=== PATIENT | male | born 1985 | race Caucasian/White ===

== ENCOUNTER 2023-08-25 22:10 | Observation (INO) | payer OTHER, SELFPAY ==
--- NOTE | ~2023-08-25 | CT_ITS ---
CT abdomen pelvis w con Ordering provider: Javon Kaur MD History: 37 years Male with . ABDOMINAL PAIN, LIFTING HEAVY OBJECT . Comparison: None. Technique: CT abdomen and pelvis with IV and without oral contrast. Automated exposure control and it erative reconstruction technique were employed. The dose-length product was 326.83 mGy-cm. 100 ML Omn ipaque 350 was given IV. Findings: VISUALIZED LOWER CHEST: Normal. UPPER ABDOMINAL ORGANS: Liver: Mild fat infiltration. 1 cm cyst in the right lobe segment 8 of the liver. Gallbladder: Normal. Spleen: Normal. Stomach/duodenum: Normal. Pancreas: Normal. Slightly prominent pancreatic duct. Adrenals: Normal. Kidneys: 8 mm cyst in the left kidney midpole. PELVIC ORGANS: The bladder shows thickened wall. Evaluation for cystitis advised. BOWEL AND MESENTERY: Colon: Mild sigmoid diverticulosis without diverticulitis. Slightly thickened wall of the appendix wi th fat stranding and measures 7 mm. Small Bowel: Normal. No obstruction. Peritoneum/mesentery: No free air or free fluid. No mesenteric lymphadenopathy. RETROPERITONEUM: Normal aorta. No retroperitoneal lymphadenopathy. Left are aortic lymph nodes is s een with the largest measures 7.5 mm. MUSCULOSKELETAL: Superficial soft tissues: The superficial soft tissues are normal. Bones: Normal spine. IMPRESSION: 1. Slightly thickened wall of the appendix with fat stranding and measures 7 mm which may indicate a cute appendicitis. Clinical correlation and evaluation advised. 2. Small cyst in the liver. Fat infiltration of the liver. 3. Slightly thickened urinary bladder wall which may indicate cystitis. Reviewed, dictated and finalized at location A. IMPRESSION: 1. Slightly thickened wall of the appendix with fat stranding and measures 7 m m which may indicate acute appendicitis. Clinical correlation and evaluation ad vised. 2. Small cyst in the liver. Fat infiltration of the liver. 3. Slightly thickened urinary bladder wall which may indicate cystitis.
[2023-08-25 22:12] VITALS: BP 107/69; PULSE 88; RESP 16; TEMP 36.3; O2SAT 97
[2023-08-25 22:34] LABS: Basophils Absolute Auto 0.1 K/mm3 (0.0-0.1); Basophils Percent Auto 0.4 % (0.2-1.2); Eosinophils Percent Auto 0.1 % (0-4.4); Hematocrit 48.8 % (42.0-52.0); Hemoglobin 17.3 g/dL (14.0-18.0); Immature Granulocyte Absolute 0.04 K/mm3 (0.00-0.031); Immature Granulocyte Percent A 0.2 % (0-0.5); Lymphocytes Absolute Auto 1.88 K/mm3 (0.9-3.2); Mean Corpuscular HGB Conc 35.5 g/dl (32-36); Mean Corpuscular Hemoglobin 30.7 pg (26-34); Mean Corpuscular Volume 86.5 fl (80-100); Mean Platelet Volume 9.8 fl (7.4-10.4); Monocytes Absolute Auto 0.6 K/mm3 (0.1-0.6); Monocytes Percent Auto 3.4 % (2.6-8.5); Neutrophils Absolute Auto 14.5 K/mm3 (1.3-6.7); Neutrophils Percent Auto 84.9 % (45.5-73.1); Platelet Count Result 225 k/mm3 (150-375); Red Blood Count 5.64 M/mm3 (4.6-6.20); Red Cell Distribution Width 12.3 % (11.5-14.5); White Blood Count 17.1 K/mm3 (4.5-10.0)
[2023-08-25 22:40] LABS: Appearance Urine Turbid (Clear); Bacteria Urine None Seen /hpf; Bilirubin Urine Negative (Negative); Blood Urine Negative (Negative); Color Urine Yellow (Yellow); Glucose Urine UA Negative (Negative); Ketones Urine Negative (Negative); Leukocyte Esterase Ur Negative LEU/UL (Negative); Nitrate Urine Negative (Negative); Non Pathogenic Casts 0-2; Protein Urine 1+ mg/dL (Negative); Specific Grav Ur 1.022 (1.001-1.035); Squamous Epithelial Cell Urine None Seen /hpf (Few); WBC Urine 0-5 /hpf (0-3); pH Urine >=9.0 (5.0-9.0)
[2023-08-25 22:42] LABS: Add Urine Microscopic? YES
--- NOTE | 2023-08-25 22:46 | ED.ABDPAIN ---
HPI - Abdominal Pain General Chief Complaint: Abdominal Pain Stated Complaint: abd pain Time Seen by Provider: 08/25/23 22:46 Source: patient Mode of arrival: ambulatory Limitations: no limitations History of Present Illness HPI narrative: 37 YEARS OLD WHITE MALE PRESENTS WITH SUDDEN ONSET OF SEVERE EPIGASTRIC PAIN STARTED AT 4:00 P.M. TODAY AFTER LEAVING WORK IMMEDIATELY ASSOCIATED WITH MULTIPLE VOMITING. HE DENIES ANY FEVER, CHILLS, DIARRHEA, CONSTIPATION OR URINARY SYMPTOMS OR HAVING SIMILAR SYMPTOMS OR ABDOMINAL SURGERY. PATIENT IS TELLING ME THAT HE LIFTED A HEAVY BOX AT WORK TODAY WHICH HE USUALLY DOES NOT DO THAT. PAIN INCREASES WITH MOVEMENT, SLIGHTLY BETTER AT REST. HE DOES NOT SMOKE OR DRINK OR USE DRUGS. Related Data Home Medications Medication Instructions Recorded Confirmed No Home Medications 08/25/23 Allergies Allergy/AdvReac Type Severity Reaction Status Date / Time No Known Allergies Allergy Verified 08/25/23 22:15 Review of Systems Review of Systems: All systems reviewed & are unremarkable except as noted in HPI and below Exam Narrative: GENERAL APPEARANCE: WELL-DEVELOPED, WELL-NOURISHED SKIN: NORMAL COLOR HEAD: NORMOCEPHALIC, NONTRAUMATIC EYES: CLEAR CONJUNCTIVA ENT: OROPHARYNX NORMAL, EARS NORMAL, NOSE NORMAL NECK: SUPPLE, NONTENDER CHEST AND RESPIRATORY: AIRWAY PATENT, NO RESPIRATORY DISTRESS, NO ACCESSORY MUSCLE USE HEART: REGULAR RATE/RHYTHM ABDOMEN: SOFT, MILD TO MODERATE TENDERNESS EPIGASTRIC AREA,, NO ORGANOMEGALY, QUIET BOWEL SOUNDS VASCULAR: NORMAL PERIPHERAL PULSES, NORMAL CAPILLARY REFILL. 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, NO GROSS MOTOR DEFICIT Course Consultations Consultation #1: DR ASTUDILLO Date: 08/26/23 Time: 00:11 Vital Signs Vital signs: Vital Signs Temperature 36.3 C L 08/25/23 22:12 Pulse Rate 88 08/25/23 22:12 Respiratory Rate 16 08/25/23 22:12 Blood Pressure 107/69 08/25/23 22:12 Pulse Oximetry 97 08/25/23 22:12 Oxygen Delivery Room Air 08/25/23 22:12 Temperature 36.3 C L 08/25/23 22:12 Pulse Rate 72 08/25/23 23:17 Respiratory Rate 15 08/25/23 23:17 Blood Pressure 105/79 08/25/23 23:17 Pulse Oximetry 98 07/18/24 23:17 Oxygen Delivery Room Air 08/25/23 22:12 MDM - Abdominal Pain MDM Narrative Medical decision making narrative: VITAL SIGNS ON ARRIVAL WITHIN NORMAL LIMIT DIFFERENTIAL DIAGNOSIS INCLUDE MUSCULAR STRAIN OF THE ABDOMINAL WALL, PANCREATITIS, ESOPHAGITIS, GASTRITIS, CHOLECYSTITIS BLOOD WORKUP TODAY SHOWED WBC OF 17.1 WITH LEFT SHIFT, URINALYSIS SHOWS NO EVIDENCE OF INFECTION CT ABDOMEN AND PELVIS WITH IV CONTRAST SHOWED POSSIBLE ACUTE APPENDICITIS, ZOSYN IV STARTED, ADMIT TO DR. ASTUDILLO. Differential Diagnosis Differential diagnosis: Likely other ( ABOVE) Medical Records Attestation: I reviewed the patient's medical records. Lab Data Attestation: I reviewed the patient's lab results. 08/25/23 22:23 08/25/23 22:23 Labs: Lab Results 08/25/23 Range/Units 22:23 WBC 17.1 H (4.5-10.0) K/mm3 RBC 5.64 (4.6-6.20) M/mm3 Hgb 17.3 (14.0-18.0) g/dL Hct 48.8 (42.0-52.0) % MCV 86.5 (80-100) fl MCH 30.7 (26-34) pg MCHC 35.5 (32-36) g/dl RDW 12.3 (11.5-14.5) % Plt Count 225 (150-375) k/mm3 MPV 9.8 (7.4-10.4) fl Immature Gran % (Auto) 0.2 (0-0.5) % Neut % (Auto) 84.9 H (45.5-73.1) % Lymph % (Auto) 11.0 L (18.3-44.2) % [place] % (Auto) 3.4 (2.6-8.5) % Eos % (Auto) 0.1 (0-4.4) % Baso % (Auto) 0.4 (0.2-1.2) % Lymph # (Auto) 1.88 (0.9-3.2) K/mm3 [place] # (Auto) 0.6
[2023-08-25 22:51] LABS: Alanine Aminotransferase 32 U/L (6-50); Albumin Level 4.9 g/dL (3.5-5.1); Alkaline Phosphatase 57 U/L (38-126); Anion Gap 12 mmol/L (4-12); Aspartate Amino Transferase 31 U/L (17-59); Bilirubin,Total 0.9 mg/dL (0.2-1.3); Blood Urea Nitrogen 11 mg/dL (9-20); Carbon Dioxide 28 mmol/L (22-30); Chloride 98 mmol/L (98-107); Estimated CRCL calculation 104 ml/min; Estimated Glomerular Filt Rate > 60; Glucose 114 mg/dL (65-110); Lipase 47 U/L (23-300); Potassium 3.9 mmol/L (3.4-5.0); Sodium 138 mmol/L (137-145)
[2023-08-25] MEDS: HYDROmorphone HCL INJ (*CRX) 1 MG/ML SYR 0.5 MG IV PUSH (23:10)
[2023-08-25] MEDS: ONDANSETRON INJ 4 MG/2 ML VIAL IV PUSH (23:10)
[2023-08-25] MEDS: SODIUM CHLORIDE 0.9% IV 1,000 ML 999 ML IV CONT (23:11)
[2023-08-25 23:17] VITALS: BP 105/79; PULSE 72; RESP 15; O2SAT 98
[2023-08-26 00:19] VITALS: BP 119/82; PULSE 68; RESP 15; O2SAT 100
[2023-08-26] MEDS: PIPERACILLN/TAZ 3.375GM/NS50ML 3.375 GM/50 ML BAG IVPB ×5 (00:23→23:03)
[2023-08-26] MEDS: LACTATED RINGERS 1,000 ML 150 ML IV CONT ×2 (00:53→06:01)
[2023-08-26] MEDS: HYDROmorphone HCL INJ (*CRX) 1 MG/ML SYR 0.5 MG IV PUSH (03:00)
[2023-08-26 04:01] VITALS: BP 126/92; PULSE 76; RESP 20; TEMP 36.4; O2SAT 99
--- NOTE | 2023-08-26 04:24 | ADMGEN ---
This patient, Johnny Leach, was admitted to [facility] Surg Room 316-02. Patient/family oriented to hospital policies and general routines including ID bracelet, bed and alarms, visiting hours, pain management, procedures, bathroom and other care routines, personal items, smoking policy, room service/diet, and visiting hours. Information on how to activate the Rapid Response Team has been discussed. Patient/Family are encouraged to report perceived risks to care and to ask questions if they do not understand what they are told or what they should do.
[2023-08-26 06:00] VITALS: BP 117/67; PULSE 77; RESP 20; TEMP 36.4; O2SAT 100
[2023-08-26 06:43] VITALS: BMI 22.1
[2023-08-26] MEDS: LACTATED RINGERS 1,000 ML 80 ML IV CONT (08:32)
[2023-08-26 09:17] LABS: Hematocrit 46.2 % (42.0-52.0); Hemoglobin 15.7 g/dL (14.0-18.0); Mean Corpuscular Hemoglobin 30.3 pg (26-34); Mean Platelet Volume 9.8 fl (7.4-10.4); Platelet Count Result 188 k/mm3 (150-375); Red Blood Count 5.19 M/mm3 (4.6-6.20); Red Cell Distribution Width 12.3 % (11.5-14.5); White Blood Count 11.1 K/mm3 (4.5-10.0)
--- NOTE | 2023-08-26 09:31 | PC.NURSE ---
Pt complaining of headache. No PRN tylenol ordered for patient. RN called Dr Taylor office for orders. Left message with Sandra.
[2023-08-26] MEDS: ACETAMINOPHEN 325 MG TABLET 650 MG PO (09:48)
[2023-08-26 14:00] VITALS: BP 100/61; PULSE 84; RESP 20; TEMP 36.3; O2SAT 100
--- NOTE | 2023-08-26 16:32 | PM.IMHP ---
H&P: HPI History of Present Illness Date/Time: 08/26/23 06:45 Chief Complaint: Abdominal pain Narrative: About 4:00 p.m. yesterday, patient started noticing central abdominal pain. Interestingly he had just lifted a fairly heavy box and felt that the pain had come on fairly quickly after that. He thought it was a muscle strain but the pain got worse and he went home from work. He had multiple episodes of vomiting and persistent pain. He came to the emergency room last night. He was noted to have right lower quadrant tenderness and an elevated white blood cell count. CT scan showed evidence of early acute appendicitis but the appendiceal diameter was only 7 mm. Patient was started on Zosyn antibiotics ended mid to the hospital. I saw him early this morning and he was feeling much better. He is admitted now for appendicitis. Review of Systems Review of Systems: All systems reviewed & are unremarkable except as noted in HPI and below (HPI and those items noted below) Constitutional: Constitutional: Denies chills and Denies fever(s) Cardiovascular: Cardiovascular: Denies chest pain, Denies diaphoresis, Denies dyspnea and Denies paroxysmal nocturnal dyspnea Respiratory: Respiratory: Denies chest congestion, Denies cough and Denies dyspnea Integumentary/Breasts: Skin/Breast: Denies lesions and Denies rash PMFSH Social History Social History Smoking status: Current some day smoker Tobacco type: e-cigarettes/vaping Alcohol intake: never Substance use: current Substance use type: marijuana Do You Feel Safe in your Home?: Yes Lack of Transportation: No Lack of Food: Sometimes True Current Housing: I Have Housing Concerned About Future Housing: No Difficulty Paying Gas/Electric Bills: No Difficulty Paying for Meds: No Currently Unemployed: No Education: Grade School Difficulty w/ Childcare or Family Care: No Spiritual care concerns: Yes Meds Home Medications and Allergies Home Medications Medication Instructions Recorded Confirmed Type No Home Medications 08/25/23 08/26/23 History Allergies Allergy/AdvReac Type Severity Reaction Status Date / Time No Known Allergies Allergy Verified 08/25/23 22:15 Vital Signs Vital Signs - 24 hr 08/25/23 22:12 08/25/23 23:17 08/26/23 00:19 Temperature 36.3 C L Pulse Rate 88 72 68 Respiratory Rate 16 15 15 Blood Pressure 107/69 105/79 119/82 Pulse Oximetry 97 98 100 Oxygen Delivery Room Air 08/26/23 04:01 08/26/23 06:00 08/26/23 09:50 Temperature 36.4 C L 36.4 C L Pulse Rate 76 77 Respiratory Rate 20 20 Blood Pressure 126/92 H 117/67 Pulse Oximetry 99 100 Oxygen Delivery Room Air 08/26/23 14:00 Temperature 36.3 C L Pulse Rate 84 Respiratory Rate 20 Blood Pressure 100/61 Pulse Oximetry 100 Oxygen Delivery Exam Const: General: comfortable, no acute distress, alert, awake and thin Orientation/consciousness: No confusion HENMT: Head: normocephalic and atraumatic Mouth: Yes Normal oral and palatal mucosa present Eyes: Conjunctivae: conjunctivae normal Pupils: Equal, round and reactive pupils present EOM: EOMs intact bilaterally Neck: Neck: normal visual inspection, no lymphadenopathy and nontender Resp: Effort & Inspection: normal respiratory effort Auscultation: clear to auscultation bilaterally Cardio: Rate: regular rate Rhythm: regular rhythm Heart sounds: no gallops, no murmurs and no rubs GI: Inspection: normal to inspection, non-distended and scaphoid GI Palp: Yes Soft to palpation, Yes Tenderness to palpation present (GI) (Right lower quadrant), No Guarding due to palpation present (GI), No Hepatomegaly present, No Splenomegaly present, No Hernia present, No Palpable mass present and No Rebound tenderness present Skin: Lesions: no lesions Rashes: no rashes Neuro: General: no focal motor deficits and CN's II-XI intact bilaterally
[2023-08-26] MEDS: IBUPROFEN 600 MG TABLET PO (21:50)
[2023-08-26 21:53] VITALS: BP 122/72; PULSE 75; RESP 18; TEMP 36.8; O2SAT 100
[2023-08-26 21:54] VITALS: BP 122/72; PULSE 75; RESP 18; TEMP 36.8; O2SAT 100
[2023-08-27] MEDS: PIPERACILLN/TAZ 3.375GM/NS50ML 3.375 GM/50 ML BAG IVPB (05:41)
[2023-08-27 06:00] VITALS: BP 110/70; PULSE 60; RESP 18; TEMP 36.7; TEMP 36.8; O2SAT 92; O2SAT 97
[2023-08-27 07:08] LABS: Hematocrit 48.3 % (42.0-52.0); Hemoglobin 16.3 g/dL (14.0-18.0); Mean Corpuscular HGB Conc 33.7 g/dl (32-36); Platelet Count Result 185 k/mm3 (150-375); Red Blood Count 5.43 M/mm3 (4.6-6.20); Red Cell Distribution Width 12.2 % (11.5-14.5); White Blood Count 8.4 K/mm3 (4.5-10.0)
--- NOTE | 2023-08-27 07:27 | PM.DS ---
DS: Admitting Diagnosis Discharge Date 08/27/2023 Admitting Diagnosis Acute appendicitis DS: Discharge Diagnosis Discharge Diagnosis (1) Acute appendicitis: Qualifiers: Acute appendicitis type: with localized peritonitis Appendicitis abscess presence: without abscess Appendicitis gangrene presence: without gangrene Appendicitis perforation presence: without perforation Qualified Code(s): K35.30 - Acute appendicitis with localized peritonitis, without perforation or gangrene Code(s): K35.80 - Unspecified acute appendicitis Status: Acute Assessment and Plan: Managed with antibiotic therapy. No surgery performed. DS: Summary Hospital Course Hospital Course: Patient came to the emergency room on August 24 with a history of central abdominal pain after lifting a heavy box at work. His pain started at around 4:00 p.m. on August 23. The pain eventually moved to the right lower quadrant. In the emergency room, he was noted to have right lower quadrant tenderness. [place] [id number] scan showed a small appendix of only 7 mm diameter but evidence of inflammation with slightly thickened wall and periappendiceal stranding. He was started on IV Zosyn and brought into the hospital the night of August 24. I saw him in the morning August 25 and he was feeling much better. The pain was essentially gone. His white blood cell count decreased to 11,000 on August 25. He had minimal right lower quadrant tenderness. After discussion of surgical versus antibiotic treatment, he preferred to proceed with antibiotic treatment. He was continued on Zosyn and on 08/26 he was pain-free and feeling essentially back to normal. He had no right lower quadrant tenderness. His white blood cell count was down to 8400. He has discharge today on regular diet and another 6 days of Augmentin. There is no plan for interval appendectomy unless he has recurrent symptoms or recurrent appendicitis. Status at Discharge Functional status at discharge: independent ambulation Overall status at discharge: patient is progressing back to baseline Time Spent with Patient Time attestation: Total time spent providing and/or coordinating discharge services: Time spent: Less than 30 minutes DS: Data Data Completed and Pending Labs on day of discharge: Labs from last 24 hours 08/27/23 08/26/23 06:34 09:07 WBC 8.4 11.1 H RBC 5.43 5.19 Hgb 16.3 15.7 Hct 48.3 46.2 MCV 89.0 89.0 MCH 30.0 30.3 MCHC 33.7 34.0 RDW 12.2 12.3 Plt Count 185 188 MPV 10.0 9.8 Sodium Pending Potassium Pending Chloride Pending Carbon Dioxide Pending Anion Gap Pending BUN Pending Creatinine Pending Estim Creat Clear Calc Pending Estimated GFR Pending Glucose Pending Calcium Pending Discharge Plan Discharge Attending physician on discharge: Manoj Taylor Discharging Clinician: Manoj Taylor Anticipated Discharge Date/Time: 08/27/23 07:32 Patient Disposition: Home, Self-Care Activity: may shower, no straining and as tolerated Diet: regular Discharge Instructions: No sports or heavy exertion for 1 week. May return to work on Tuesday. Resume usual diet. Call Dr. Taylor or return to the emergency room if abdominal pain, especially in the right lower quadrant, should recur. Also call for temperature over 100.5, vomiting, or other significant change in condition. No need for follow-up with Dr. Taylor unless problems develop. Patient Instructions: Antibiotic Form, How to Stop Smoking (DC) Stand Alone Forms: General Discharge Information Follow-up/Referrals: Loly,MARCO Ozuna [Primary Care Provider] - Follow Up with Primary Dr (Only as needed. See Dr. Taylor in if any problems similar to present illness develop.) Discharge Medications: New amoxicillin-pot clavulanate 875-125 mg tablet 1 tablet PO Q12H Qty: 12 0RF Continued No Home Medicati
--- NOTE | 2023-08-27 07:28 | PC.NURSE ---
On 08/27/23, the [employer] PERSON, [Tamiko ], provided care and completed [email or web address] documentation on this patient. I have reviewed the [employer] PERSON's documentation and agree with the findings.
[2023-08-27 07:29] LABS: Anion Gap 7 mmol/L (4-12); Blood Urea Nitrogen 12 mg/dL (9-20); Calcium 9.1 mg/dL (8.4-10.2); Carbon Dioxide 28 mmol/L (22-30); Chloride 103 mmol/L (98-107); Estimated CRCL calculation 94 ml/min; Estimated Glomerular Filt Rate > 60; Glucose 90 mg/dL (65-110); Potassium 3.9 mmol/L (3.4-5.0); Sodium 138 mmol/L (137-145)
== END 2023-08-27 08:30 | disposition home or self-care (01) ==
LOC: ANHED 08-26 00:07 → ANH3MEDSUR 08-26 01:18
PROVIDERS: Emergency Medicine; Admitting Provider Surgery; Emergency Provider Emergency Medicine; PCP Registered Nurse; Visit Provider Surgery
DX: K35.30 Acute appendicitis with localized peritonitis, without perforation or gangrene (principal); F17.290 Nicotine dependence, other tobacco product, uncomplicated; F12.90 Cannabis use, unspecified, uncomplicated
CPT/HCPCS: 36415; 74177; 80048; 80053; 81001; 83690; 85025; 85027; 96361; 96365; 96366; 96375; 99285; A9270; G0378; J1170; J2405; J2543; J7030; J7120; Q9967

== ENCOUNTER 2023-08-31 07:07 | Outpatient (CLI) | payer OTHER, SELFPAY ==
--- NOTE | ~2023-08-31 | CT_ITS ---
EXAMINATION: CT abdomen pelvis w con DATE: 08/31/2023 07:25 INDICATION: Acute appendicitis TECHNIQUE: Computed tomography (CT) of the abdomen and pelvis was performed with 100 cc Omnipaque 350 intravenous contrast. The dose-length product was 295.90 mGy-cm. Automated exposure control and iter ative reconstruction technique were employed. COMPARISON: CT dated 08/25/2023. FINDINGS: Lung bases unremarkable. Heart size normal. No significant pleural or pericardial effusion. Small subtle subcentimeter hypodensity of the right hepatic lobe, too small to characterize, likely benign. The spleen, pancreas, adrenal glands and kidneys are unremarkable. Nonobstructive bowel gas p attern. No significant vascular abnormality. Gallbladder is present. No lymphadenopathy. No acute oss eous abnormality. Gallbladder is present. Appendix is unremarkable. No evidence for diverticulitis. N o abnormal pelvic masses or fluid collections. Small lytic lesion right iliac crest, nonspecific. IMPRESSION: 1. No acute abdominal abnormality. Reviewed, dictated and finalized at location B.
[2023-08-31 08:41] LABS: Basophils Absolute Auto 0.1 K/mm3 (0.0-0.1); Eosinophils Absolute Auto 0.1 K/mm3 (0-0.3); Eosinophils Percent Auto 2.3 % (0-4.4); Hematocrit 46.6 % (42.0-52.0); Immature Granulocyte Absolute 0.01 K/mm3 (0.00-0.031); Immature Granulocyte Percent A 0.2 % (0-0.5); Lymphocytes Absolute Auto 2.31 K/mm3 (0.9-3.2); Lymphocytes Percent Auto 38.2 % (18.3-44.2); Mean Corpuscular HGB Conc 34.3 g/dl (32-36); Mean Corpuscular Hemoglobin 30.2 pg (26-34); Mean Corpuscular Volume 88.1 fl (80-100); Mean Platelet Volume 10.1 fl (7.4-10.4); Monocytes Absolute Auto 0.5 K/mm3 (0.1-0.6); Monocytes Percent Auto 7.4 % (2.6-8.5); Neutrophils Absolute Auto 3.1 K/mm3 (1.3-6.7); Neutrophils Percent Auto 50.9 % (45.5-73.1); Platelet Count Result 188 k/mm3 (150-375); Red Blood Count 5.29 M/mm3 (4.6-6.20); White Blood Count 6.1 K/mm3 (4.5-10.0)
== END 2023-08-31 07:08 | disposition home or self-care (01) ==
PROVIDERS: PCP Registered Nurse; Visit Provider Surgery
DX: K35.30 Acute appendicitis with localized peritonitis, without perforation or gangrene (principal)
CPT/HCPCS: 36415; 74177; 85025; Q9967